=== PATIENT | female | born 1980 | race Caucasian/White ===

== ENCOUNTER 2017-05-20 08:07 | Inpatient (IN) ==
[2017-05-20] MEDS ORDERED: Ringers Solution, Lactated 1,000 ML ONE (08:16)
[2017-05-20] MEDS ORDERED: Oxytocin 20 units/ LR 1000 mL 20 UNIT/1,000 ML BAG IVC ONE (08:23)
[2017-05-20] MEDS ORDERED: *HR* Oxytocin 10 UNIT/ML VIAL IM ONE (08:30)
[2017-05-20] MEDS ORDERED: miSOPROStol 100 MCG TABLET PO ONE (08:32)
--- NOTE | 2017-05-20 08:58 | OB/GYN History & Physical ---
Date of Encounter: 05/20/17 Time of Encounter: 08:54 Assessment and Plan (1) Uterine contractions Current visit: Yes Status: Acute Admit to labor and delivery Collect all labs Anticipate vaginal delivery Plan of care per consult with Dr. Lemus (2) 38 weeks gestation of Current visit: Yes Status: Acute History of Present Illness Chief complaint: contractions HPI: Ms. Frankel is a 37 year old female who presents via ambulance with c/ o active labor. States she received care in [place] and recently came up here because this is where she was born. EDB 06/01 according to patient. She states contractions started last night at 2200. Endorses good FM and denies LOF, vaginal bleeding. Her course and labs are unknown. She does not desire future fertility. Labs: All pending Past Med Surg Social Fam HX - Past Medical History Medical history: GERD Psychiatric history: anxiety - Social History Smoking Status: Current every day smoker Alcohol use: none Drug use: prescription drug abuse - Family History Mother Living Status: Still Living Obstetrical History - Pregnancies : 6 Para: 4 Term: 4 : 0 Ab's: 1 Livin Medications and Allergies Docusate [Colace] 100 mg PO BID #60 capsule 09/12/15 [Rx] Ibuprofen [Motrin] 600 mg PO TID PRN #60 tablet 09/12/15 [Rx] Ondansetron HCl [Zofran] 4 mg PO Q8HR #12 tablet 08/30/16 [Rx] 3 Allergy/AdvReac Type Severity Reaction Status Date / Time No Known Allergies Allergy Verified 09/11/15 16:29 Review of System OB All systems PM: reviewed and no additional remarkable complaints except as stated Exam - Constitutional Constitutional: well developed, well nourished, average body habitus, moderate distress - HEENT HEENT: Normocephaly, Mucus Membranes Moist - Neck Neck exam: full ROM - Lungs Respiratory exam: CTAB - Cardiovascular Cardiovascular exam: RRR, +S1, +S2 - Breasts Breast: bilateral: normal - Abdomen Abdomen: Present: gravid, non tender - Extremities Extremities exam: radial pulses palpable and symmetrical - Vulva Vulva: bilateral: normal - Vagina Vagina: Present: normal moisture, discharge - Cervix Dilation: 10 Effacement: 100 Station: +1 - Anus/Rectum Anus/Rectum: Present: hemorrhoids Results All other labs normal.
[2017-05-20] MEDS ORDERED: Naloxone 0.4 MG/ML INJ IVP PRN (09:02)
--- NOTE | 2017-05-20 09:16 | OB/GYN Procedure Note ---
Delivery - Delivery Date: 05/20/17 Provider: Lavinia Alfonso Intrapartum events: meconium Delivery induction: none Delivery monitor: external FHT, external uterine Anesthesia: none Estimated Blood Loss: 200 - (s) A Infant Delivery Date: 05/20/17 Delivery Time: 08:24 Presentation: vertex Position: AMIE Route of delivery: Gender: Male Viability: Viable Pounds: 4 Ounces: 6 Weight Gram: 1.98 kg at 1 minute: 8 at 5 mins: 8 Shoulder Dystocia: not encountered Specimens collected: cord blood, venous cord gases, arterial cord gases Placenta: spontaneous Cord: 3 umbilical vessels - Repair Episiotomy: none Laceration Description: None - Complications Delivery complications: meconium Delivery comments: This is a 37-year-old G6 now [id number] who is admitted for active labor. She progressed spontaneously to the second stage of labor. Under maternal effort, she delivered a viable male infant, AMIE over an intact perineum. The mouth and nares were bulb suctioned on the maternal abdomen. No nuchal cord was identified no shoulder dystocia was encountered. Nursery was at delivery. scores were 8 at 1 minute and 8 at 5 minutes. The placenta delivered spontaneously (oro), intact with a 3 vessel cord. Inspection revealed no perineal, sidewall or cervical lacerations. The uterus was firm with no active bleeding. EBL was 200mL. Placenta and umbilical artery blood gases were sent for processing. There were no complications during the procedure. Mom is recovering in the delivery bed and is in the nursery. - Disposition Mom disposition: stable in LDR disposition: taken to nursery - Comments Comments: Called to attend precipitous delivery a patient with no known care. Placenta not delivering spontaneously. Patient had no IV, she pulled it out. The patient been given IM Pitocin and oral Cytotec. Careful examination of the perineum showed no lacerations, no lashes are visualized of the vagina or cervix either. There was no aggressive or active bleeding vaginally. After medications and gentle traction there was a spontaneous delivery of an intact placenta with trailing blood clots. Placenta was inspected and appreciated to be intact, three-vessel cord noted. Placenta to be sent to pathology for further evaluation. The uterus was firm and below umbilicus after placental delivery. Minimal bleeding noted at that time. Patient considered stable with follow-up care as indicated per patient's history
[2017-05-20 10:04] LABS: Basophils % 0.2 %; Eosinophils % 0.1 %; Hematocrit 34.9 % (35.3-44.9); Hemoglobin 11.2 g/dL (11.5-15.4); Immature Granulocytes % 0.6 % (0-4); Lymphocytes # 1.2 K/mcL (0.6-4.6); Lymphocytes % 6.4 %; Mean Corpuscular HGB Conc 32.1 g/dL (31.6-35.5); Mean Corpuscular Hemoglobin 27.8 pg (28.0-33.3); Mean Corpuscular Volume 86.6 fL (83.0-100.0); Mean Platelet Volume 10.7 fL (9.4-12.4); Monocytes # 0.6 K/mcL (0.0-1.3); Monocytes % 3.1 %; Platelet Count 329 K/mcL (140-400); Red Blood Count 4.03 M/mcL (3.82-4.97); Red Cell Distribution Width 13.6 % (11.5-14.5); Segmented Neutrophils % 89.6 %
[2017-05-20 10:41] LABS: Hepatitis A Antibody IgM Nonreactive (Nonreactive); Hepatitis B Core IgM Nonreactive (Nonreactive); Hepatitis B Surface Antigen Nonreactive (Nonreactive); Hepatitis C Virus Antibody Nonreactive (Nonreactive)
[2017-05-20] MEDS ORDERED: Rho Immune Globulin 1,500 UNIT SYRINGE IM PRN (11:11)
[2017-05-20] MEDS ORDERED: Acetaminophen 325 MG TABLET PO PRN (11:11)
[2017-05-20] MEDS ORDERED: Measles/Mumps/Rubella Vacc 0.5 ML VIAL SQ PRN (11:11)
[2017-05-20 11:17] LABS: Rubella IgG Antibody POSITIVE (POSITIVE); Varicella Zoster IgG Antibody Positive
[2017-05-20] MEDS: Ibuprofen 600 MG TABLET PO PRN ×2 (12:22→21:11)
[2017-05-20] MEDS: miSOPROStol 100 MCG TABLET PO SCH ×2 (14:16→21:12)
[2017-05-20] MEDS: Famotidine 20 MG TABLET PO SCH ×2 (16:47→21:12)
[2017-05-20 17:18] LABS: Bilirubin,Urine Negative (Negative); Blood,Urine Moderate (Negative); Clarity,Urine Clear (Clear); Color,Urine Yellow (Yellow); Glucose,Urine (UA) Normal (Normal); Ketones,Urine 15 mg/dL (Negative); Leukocyte Esterase,Urine Negative (Negative); Nitrite,Urine Negative (Negative); PH,Urine 6.5 pH Units (5.0-8.0); Protein,Urine 30 mg/dL (Neg-Trace); Specific Gravity,Urine 1.029 (1.010-1.025); Urobilinogen,Urine Normal (Normal)
[2017-05-20 17:19] LABS: Amphetamine Screen,Urine Positive ng/mL (Cutoff=1000); Barbiturate Screen,Urine Negative ng/mL (Cutoff=200); Benzodiazepines Screen,Urine Negative ng/mL (Cutoff=200); Cannabinoid Screen,Urine Negative ng/mL (Cutoff = 50); Cocaine Screen,Urine Negative ng/mL (Cutoff= 300); Opiate Screen,Urine Negative ng/mL (Cutoff=300); Phencyclidine Screen,Urine Negative ng/mL (Cutoff=25)
[2017-05-20 17:22] LABS: Bacteria,Urine None Seen per hpf (None-Few); Hyaline Casts,Urine None Seen per lpf (None-Few); RBC,Urine 15-30 per hpf (0-3); Squamous Epithelial Cell,Urine Many per lpf (None-Few); WBC,Urine 0-3 per hpf (0-3)
[2017-05-21] MEDS: Ibuprofen 600 MG TABLET PO PRN ×2 (02:01→07:39)
[2017-05-21] MEDS: miSOPROStol 100 MCG TABLET PO SCH ×2 (02:04→07:40)
[2017-05-21] MEDS: Famotidine 20 MG TABLET PO SCH (07:39)
[2017-05-21 08:12] VITALS: BP 120/77
[2017-05-21] MEDS ORDERED: Prenatal Vit/FA 1 EACH TABLET PO SCH (09:00)
--- NOTE | 2017-05-21 09:38 | Discharge Summary ---
Date of Encounter: 05/21/17 Time of Encounter: 09:35 - Discharge Diagnosis (1) Vaginal delivery Priority: Primary Status: Acute Comments: Bleeding has decreased, tolerates po diet, pain well managed, desires discharge (2) Opiate dependence Priority: Primary Status: Acute Comments: Pt will be discharged. Has seen social welfare administrator to address concerns with opiate dependance Qualifiers: Substance use status: in withdrawal Qualified Code(s): F11.23 - Opioid dependence with withdrawal - Discharge Medications Prescriptions: Ibuprofen [Motrin] 600 mg PO Q6HR PRN #60 tablet PRN Reason: Cramping Docusate [Colace] 100 mg PO BID #60 capsule Home Medications: Prilosec 1 / PO DAILY 05/20/17 [History] Acetaminophen [Tylenol] 650 mg PO Q6HR PRN tablet 05/21/17 [Rx] Docusate [Colace] 100 mg PO BID #60 capsule 05/21/17 [Rx] GuaiFENesin ER [Mucinex] 600 mg PO BID PRN tbbp.12hr 05/21/17 [Rx] Ibuprofen [Motrin] 600 mg PO Q6HR PRN #60 tablet 05/21/17 [Rx] Vit/FA 1 each PO DAILY tablet 05/21/17 [Rx] Allergies/Adverse Reactions: 3 Allergy/AdvReac Type Severity Reaction Status Date / Time No Known Allergies Allergy Verified 09/11/15 16:29 Data Procedures and tests throughout hospitalization: Laboratory Tests 05/20/17 05/20/17 05/20/17 09:36 09:36 09:36 WBC 19.0 H RBC 4.03 Hgb 11.2 L Hct 34.9 L MCV 86.6 MCH 27.8 L MCHC 32.1 RDW 13.6 Plt Count 329 MPV 10.7 Immature Gran % 0.6 Seg Neutrophils % 89.6 Lymphocytes % 6.4 Monocytes % 3.1 Eosinophils % 0.1 Basophils % 0.2 Neutrophils # 17.0 H Lymphocytes # 1.2 Monocytes # 0.6 Eosinophils # 0.0 Basophils # 0.0 Urine Color Urine Clarity Urine pH Ur Specific [place] Urine Protein Urine Glucose (UA) Urine Ketones Urine Blood Urine Nitrite Urine Bilirubin Urine Urobilinogen Ur Leukocyte Esterase Urine Microscopic RBC Urine Microscopic WBC Ur Squamous Epith Cells Urine Bacteria Hyaline Casts Ur Culture Indicated? Urine Opiates Screen Ur Barbiturates Screen Ur Phencyclidine Scrn Ur Amphetamines Screen U Benzodiazepines Scrn Urine Cocaine Screen U Marijuana (THC) Screen T.pallidum Ab Interpret Hepatitis A IgM Ab Nonreactive Hep Bs Antigen Nonreactive Hep B Core IgM Ab Nonreactive Hepatitis C Ab Screen Nonreactive HIV Ag/Ab Combo Qual Nonreactive Rubella IgG Antibody VZV IgG Antibody Blood Type Antibody Screen 05/20/17 05/20/17 05/20/17 09:36 09:36 15:15 WBC RBC Hgb Hct MCV MCH MCHC RDW Plt Count MPV Immature Gran % Seg Neutrophils % Lymphocytes % Monocytes % Eosinophils % Basophils % Neutrophils # Lymphocytes # Monocytes # Eosinophils # Basophils # Urine Color Yellow Urine Clarity Clear Urine pH 6.5 Ur Specific [place] 1.029 H Urine Protein 30 H Urine Glucose (UA) Normal Urine Ketones 15 H Urine Blood Moderate H Urine Nitrite Negative Urine Bilirubin Negative Urine Urobilinogen Normal Ur Leukocyte Esterase Negative Urine Microscopic RBC 15-30 H Urine Microscopic WBC 0-3 Ur Squamous Epith Cells Many H Urine Bacteria None Seen Hyaline Casts None Seen Ur Culture Indicated? NO Urine Opiates Screen Ur Barbiturates Screen Ur Phencyclidine Scrn Ur Amphetamines Screen U Benzodiazepines Scrn Urine Cocaine Screen U Marijuana (THC) Screen T.pallidum Ab Interpret Negative Hepatitis A IgM Ab Hep Bs Antigen Hep B Core IgM Ab Hepatitis C Ab Screen HIV Ag/Ab Combo Qual Rubella IgG Antibody POSITIVE VZV IgG Antibody Positive Blood Type B POSITIVE Antibody Screen NEGATIVE 05/20/17 15:15 WBC RBC Hgb Hct MCV MCH MCHC RDW Plt Count MPV Immature Gran % Seg Neutrophils % Lymphocytes % Monocytes % Eosinophils % Basophils % Neutrophils # Lymphocytes # Monocytes # Eosinophils # Basophils # Urine Color Urine Clarity Urine pH Ur Specific [place] Urine Protein Urine Glucose (UA) Urine Ketones Urine Blood Urine Nitrite Urine Bilirubin Urine Urobilinogen Ur Leukocyte Esterase Urine Microscopic RBC Urine Microscopic WBC Ur Squamous Epith Cells Urine Bacteria Hyaline Casts Ur Culture Indicated? Urine Opiates Screen Negative Ur Barbiturates Screen Negative Ur Phencyclidine Scrn Negative Ur Amphetamines Screen Positive H U Benzodiazepines Scrn Negative Urine Cocaine Screen Negative U Marijuana (THC) Screen Negative T.pallidum Ab Interpret Hepatitis A IgM Ab Hep Bs Antigen Hep B Core IgM Ab Hepatitis C Ab Screen HIV Ag/Ab Combo Qual Rubella IgG Antibody VZV IgG Antibody Blood Type Antibody Screen Labs on day of discharge: Labs from last 24 hours 05/20/17 05/20/17 05/20/17 15:15 15:15 09:36 WBC RBC Hgb Hct MCV MCH MCHC RDW Plt Count MPV Immature Gran % Seg Neutrophils % Lymphocytes % Monocytes % Eosinophils % Basophils % Neutrophils # Lymphocytes # Monocytes # Eosinophils # Basophils # Urine Color Yellow Urine Clarity Clear Urine pH 6.5 Ur Specific [place] 1.029 H Urine Protein 30 H Urine Glucose (UA) Normal Urine Ketones 15 H Urine Blood Moderate H Urine Nitrite Negative Urine Bilirubin Negative Urine Urobilinogen Normal Ur Leukocyte Esterase Negative Urine Microscopic RBC 15-30 H Urine Microscopic WBC 0-3 Ur Squamous Epith Cells Many H Urine Bacteria None Seen Hyaline Casts None Seen Ur Culture Indicated? NO Urine Opiates Screen Negative Ur Barbiturates Screen Negative Ur Phencyclidine Scrn Negative Ur Amphetamines Screen Positive H U Benzodiazepines Scrn Negative Urine Cocaine Screen Negative U Marijuana (THC) Screen Negative T.pallidum Ab Interpret Hepatitis A IgM Ab Hep Bs Antigen Hep B Core IgM Ab Hepatitis C Ab Screen HIV Ag/Ab Combo Qual Rubella IgG Antibody VZV IgG Antibody Blood Type B POSITIVE Antibody Screen NEGATIVE 05/20/17 05/20/17 05/20/17 09:36 09:36 09:36 WBC 19.0 H RBC 4.03 Hgb 11.2 L Hct 34.9 L MCV 86.6 MCH 27.8 L MCHC 32.1 RDW 13.6 Plt Count 329 MPV 10.7 Immature Gran % 0.6 Seg Neutrophils % 89.6 Lymphocytes % 6.4 Monocytes % 3.1 Eosinophils % 0.1 Basophils % 0.2 Neutrophils # 17.0 H Lymphocytes # 1.2 Monocytes # 0.6 Eosinophils # 0.0 Basophils # 0.0 Urine Color Urine Clarity Urine pH Ur Specific [place] Urine Protein Urine Glucose (UA) Urine Ketones Urine Blood Urine Nitrite Urine Bilirubin Urine Urobilinogen Ur Leukocyte Esterase Urine Microscopic RBC Urine Microscopic WBC Ur Squamous Epith Cells Urine Bacteria Hyaline Casts Ur Culture Indicated? Urine Opiates Screen Ur Barbiturates Screen Ur Phencyclidine Scrn Ur Amphetamines Screen U Benzodiazepines Scrn Urine Cocaine Screen U Marijuana (THC) Screen T.pallidum Ab Interpret Negative Hepatitis A IgM Ab Hep Bs Antigen Hep B Core IgM Ab Hepatitis C Ab Screen HIV Ag/Ab Combo Qual Nonreactive Rubella IgG Antibody POSITIVE VZV IgG Antibody Positive Blood Type Antibody Screen 05/20/17 09:36 WBC RBC Hgb Hct MCV MCH MCHC RDW Plt Count MPV Immature Gran % Seg Neutrophils % Lymphocytes % Monocytes % Eosinophils % Basophils % Neutrophils # Lymphocytes # Monocytes # Eosinophils # Basophils # Urine Color Urine Clarity Urine pH Ur Specific [place] Urine Protein Urine Glucose (UA) Urine Ketones Urine Blood Urine Nitrite Urine Bilirubin Urine Urobilinogen Ur Leukocyte Esterase Urine Microscopic RBC Urine Microscopic WBC Ur Squamous Epith Cells Urine Bacteria Hyaline Casts Ur Culture Indicated? Urine Opiates Screen Ur Barbiturates Screen Ur Phencyclidine Scrn Ur Amphetamines Screen U Benzodiazepines Scrn Urine Cocaine Screen U Marijuana (THC) Screen T.pallidum Ab Interpret Hepatitis A IgM Ab Nonreactive Hep Bs Antigen Nonreactive Hep B Core IgM Ab Nonreactive Hepatitis C Ab Screen Nonreactive HIV Ag/Ab Combo Qual Rubella IgG Antibody VZV IgG Antibody Blood Type Antibody Screen Date of admission: 05/20/17 08:07 Primary care physician: PCP JONO Consults: 05/20/17 11:11 Consult to Director Speech And Hearing [CONS] Routine Comment: Vaginal delivery, consult needed Consult to Farm Appraiser [CONS] Routine Reason for SW Consult: no care Discharging clinician: Maribel Lemus Anticipated date of discharge: 05/21/17 - Patient Status Disposition: Home, Self-Care Condition: Good Functional capacity at discharge: independent ambulation Overall status at discharge: patient is back to baseline - Discharge Instructions Follow Up With: NONE,PCP [Primary Care Provider] - - Diet and Activity Activity: increase activity as tolerated Diet: regular diet Hospital Course Reason for admission: active labor Delivery: Episiotomy: none Laceration: none complications: none Discharge diagnosis: IUP at term delivered [place] baby: male Hospital course: Delivery - Delivery Date: 05/20/17 Provider: Lavinia Alfonso Intrapartum events: meconium Delivery induction: none Delivery monitor: external FHT, external uterine Anesthesia: none Estimated Blood Loss: 200 - Infant (s) A Infant Delivery Date: 05/20/17 Infant Delivery Time: 08:24 Presentation: vertex Position: AMIE Route of delivery: Gender: Male Viability: Viable Pounds: 4 Ounces: 6 Weight Gram: 1.98 kg at 1 minute: 8 at 5 mins: 8 Shoulder Dystocia: not encountered Specimens collected: cord blood, venous cord gases, arterial cord gases Placenta: spontaneous Cord: 3 umbilical vessels - Repair Episiotomy: none Laceration Description: None - Complications Delivery complications: meconium Delivery comments: This is a 37-year-old G6 now [id number] who is admitted for active labor. She progressed spontaneously to the second stage of labor. Under maternal effort, she delivered a viable male , AMIE over an intact perineum. The mouth and nares were bulb suctioned on the maternal abdomen. No nuchal cord was identified no shoulder dystocia was encountered. Nursery was at delivery. scores were 8 at 1 minute and 8 at 5 minutes. The placenta delivered spontaneously (oro), intact with a 3 vessel cord. Inspection revealed no perineal, sidewall or cervical lacerations. The uterus was firm with no active bleeding. EBL was 200mL. Placenta and umbilical artery blood gases were sent for processing. There were no complications during the procedure. Mom is recovering in the delivery bed and is in the nursery. - Disposition Mom disposition: stable in PP and appropriate for discharge. - Comments Comments: Called to attend precipitous delivery a patient with no known care. Placenta not delivering spontaneously. Patient had no IV, she pulled it out. The patient been given IM Pitocin and oral Cytotec. Careful examination of the perineum showed no lacerations, no lashes are visualized of the vagina or cervix either. There was no aggressive or active bleeding vaginally. After medications and gentle traction there was a spontaneous delivery of an intact placenta with trailing blood clots. Placenta was inspected and appreciated to be intact, three-vessel cord noted. Placenta to be sent to pathology for further evaluation. The uterus was firm and below umbilicus after placental delivery. Minimal bleeding noted at that time. Patient considered stable with follow-up care as indicated per patient's history Time Attestation: Total time spent providing and/or coordinating discharge services: Time Spent: Less than 30 minutes Exam - Constitutional Vitals: Temp Pulse Resp BP Pulse Ox 97.7 F 87 16 120/77 98 05/21/17 07:36 05/21/17 07:36 05/21/17 07:53 05/21/17 07:36 05/21/17 07:36 General appearance IM: A&O X 3 - Respiratory Respiratory exam: Present: CTAB - Cardiovascular Cardiovascular exam IM: Present: RRR - GI/Abdominal GI/Abdominal exam IM: soft - Uterine Tone: Firm Uterus Position: 1 Finger Below Umbilicus - Extremities Exam Extremities exam IM: Present: normal capillary refill, normal inspection - Neurological Exam Neurological exam: normal gait, oriented X3 - Psychiatric Additional comments: Pt very jittery. Frequent rapid movements all over bed. Suspect early withdrawal. Reports good mood.
== END 2017-05-21 10:20 | disposition home or self-care (01) | DRG 541 ==
LOC: 1NENULAB → OBSVTOIN 08:07 → 1NENUOBS 11:07
PROVIDERS: ADMIT Obstetrics & Gynecology; ATTEND Obstetrics & Gynecology